=== PATIENT | female | born 1970 | race Caucasian/White ===

== ENCOUNTER → 2018-09-12 | Outpatient (CLI) | payer OTHER, SELFPAY ==
[2018-09-12 14:35] VITALS: BMI 32.9
[2018-09-19 11:19] LABS: HPV APTIMA, High Risk Negative (Negative)
== END | disposition home or self-care (01) ==
LOC: LABSPEC 17:21
PROVIDERS: Family Provider Internal Medicine; PCP Internal Medicine; Referring Provider Obstetrics & Gynecology; Visit Provider Obstetrics & Gynecology
DX: Z12.4 Encounter for screening for malignant neoplasm of cervix (principal)
CPT/HCPCS: 87624; 88175; G0145

== ENCOUNTER → 2018-09-25 12:13 | Outpatient (CLI) | payer OTHER, SELFPAY ==
[2018-09-12 14:35] VITALS: BMI 32.9
--- NOTE | 2018-09-25 12:14 | US_ITS ---
STUDY: ULTRASOUND OF THE FEMALE PELVIS - COMPLETE REASON FOR EXAM: Female, 47 years old. Heavy bleeding LMP: 09/20/2018 TECHNIQUE: Transabdominal and Transvaginal TECHNICAL QUALITY: Adequate. COMPARISON: None. FINDINGS: The uterus is anteverted and is in a midline position. The uterus measures 12.1 x 5.1 x 4.3 cm. Multiple nabothian cysts noted on the cervix. The endometrium measures 7 mm in thickness, and is heterogeneous (striated). There is no demonstrated endometrial mass. 2 uterine fibroids noted, larger measures 2.3 cm, smaller 0.8 cm. scar also noted. I.U.D. - The patient does not have an I.U.D. The right ovary is visualized. The right ovary measures 2.1 x 2.5 x 1.7 cm. There is a 1.0 cm dominant follicle.. There is normal arterial and normal venous vascularity. The left ovary is visualized. The left ovary measures 3.4 x 2.5 x 1.5 cm. There is a 1.2 cm dominant follicle. There is normal arterial and normal venous vascularity. There is no fluid in the cul-de-sac. The bladder is incompletely distended US/Pelvic (Non ) IMPRESSION: Enlarged fibroid uterus Dominant follicular cysts on both ovaries, no suspicious adnexal mass or free fluid Nabothian cysts on the cervix Electronically Signed: Basilio Escobar MD at 13:52 EDT , Service support ,
--- NOTE | 2018-09-25 12:14 | US_ITS ---
STUDY: ULTRASOUND OF THE FEMALE PELVIS - COMPLETE REASON FOR EXAM: Female, 47 years old. Heavy bleeding LMP: 09/20/2018 TECHNIQUE: Transabdominal and Transvaginal TECHNICAL QUALITY: Adequate. COMPARISON: None. FINDINGS: The uterus is anteverted and is in a midline position. The uterus measures 12.1 x 5.1 x 4.3 cm. Multiple nabothian cysts noted on the cervix. The endometrium measures 7 mm in thickness, and is heterogeneous (striated). There is no demonstrated endometrial mass. 2 uterine fibroids noted, larger measures 2.3 cm, smaller 0.8 cm. scar also noted. I.U.D. - The patient does not have an I.U.D. The right ovary is visualized. The right ovary measures 2.1 x 2.5 x 1.7 cm. There is a 1.0 cm dominant follicle.. There is normal arterial and normal venous vascularity. The left ovary is visualized. The left ovary measures 3.4 x 2.5 x 1.5 cm. There is a 1.2 cm dominant follicle. There is normal arterial and normal venous vascularity. There is no fluid in the cul-de-sac. The bladder is incompletely distended US/Transvaginal Non- IMPRESSION: Enlarged fibroid uterus Dominant follicular cysts on both ovaries, no suspicious adnexal mass or free fluid Nabothian cysts on the cervix Electronically Signed: Basilio Escobar MD at 13:52 EDT , Service support ,
== END ==
PROVIDERS: Family Provider Internal Medicine; PCP Internal Medicine; Referring Provider Obstetrics & Gynecology; Visit Provider Obstetrics & Gynecology
DX: N92.1 Excessive and frequent menstruation with irregular cycle (principal); N88.8 Other specified noninflammatory disorders of cervix uteri; D25.9 Leiomyoma of uterus, unspecified
CPT/HCPCS: 76830; 76856; 93976

== ENCOUNTER 2018-10-19 12:42 | Inpatient (IN) | payer OTHER, SELFPAY ==
[2018-09-26 11:19] VITALS: BMI 32.9
[2018-10-10 10:32] VITALS: BMI 32.9
--- NOTE | 2018-10-11 00:51 | HP.PCM_ITS ---
- Problem List (1) Abnormal uterine bleeding Status: Acute (2) Atypical squamous cells of undetermined significance (ASC-US) on cervical Pap smear Status: Acute Comment: HPV negative. Repeat pap in 2019 (3) Uterine fibroid Status: Acute Comment: lavbernarda bs cysto History and Physical Date of Admission: 10/18/18 Intake Vital Signs 10/10/18 Body Mass Index (BMI) 32.9 10/10/18 Height 5 ft 3 in 10/10/18 Weight: 189 lb 10/10/18 Body Mass Index (BMI) 33.5 10/10/18 Blood Pressure 120/78 Intake Visit Reasons: ANTONI DECKER Chief Complaint: Prep OP LAV BS Cysto ERAS Tennis Professional Required: No Is patient in pain?: No Allergies No Known Allergies Allergy (Verified 10/10/18 10:32) Medications NK 10/10/18 [History Confirmed 10/10/18] Is last menstrual period known: No Post menopausal: No Patient : No : No [facility] Medical History No known problems (Acute) Surgical History No history of previous surgery (Acute) Family History Grandmother Breast cancer Heart disease Grandmother Breast cancer Social History (Updated 10/10/18 @ 10:50 by Ofelia Ragland MD) household members: family housing: house number of children: 2 current occupational status: employed current occupation: Retail current occupational exposures/hazards: No Smoking Status: Never smoker second hand exposure: No alcohol intake: current alcohol intake frequency: holidays/special occasions only substance use type: does not use seatbelt use: always do you feel safe at home: Yes HPI ANTONI PACK BS: Details: SONYA JENNINGS is a 47 year old who presents for abnormal uterine bleeding, pelvic discomfort and irregular bleeding every 2 weeks, heavy and then bleeding in between. on ultrasound she has a 12 cm fibroid. she has had 1 previous cs and 1 . Female Reproductive History Questions: Sexually active: Yes, Dyspareunia: No, PCB: No Menopausal Symptoms: No night sweats Pregancy History 3 Elective abortions Hx Para 2 Spontaneous abortions 1 Hx # Term Pregnancies Ectopic pregnancies Hx # Pregnancies Multiple births # of living children 2 Past Pregnancies Del. Date Name GA/Weeks Outcome Route Bth Weight Infant Gen Labor Lgth Anesthesia Del [facility] FOB 12/19/96 Timothy live - full term Female 10/12/00 Jackeline live - full term Female ROS Const Constitutional: Denies fatigue, night sweats, weight gain or weight loss ENT ENT: Reports system reviewed and no additional complaints, except as docu Cardio Card: Denies chest pain Resp Resp: Denies cough or dyspnea GI GI: Reports as per HPI; denies abdominal pain, constipation, nausea or vomiting : Denies nipple discharge Musc Musc: Denies joint pain, back pain or muscle weakness Skin Skin/Breast: Denies hair loss, change in hair, dry skin, breast lump, breast pain, breast skin changes or nipple discharge Neuro Neuro: Reports system reviewed and no additional complaints, except as docu Psych Psych: Reports system reviewed and no additional complaints, except as docu Endo Endo: Denies cold intolerance, excessive sweating, heat intolerance or increased thirst Lg/Lymph Hematologic/Lymphatic: Denies easy bleeding, Denies easy bruising, Denies enlarged lymph nodes Exam Const General: cooperative, healthy appearing, comfortable, no acute distress, well developed Orientation: alert [facility] Head: normal to inspection, normocephalic Ears: hearing grossly normal bilaterally, external ears normal Nose: external nose normal, nares normal Face and sinus: normal facial exam Neck Neck: normal visual inspection, no lymphadenopathy Thyroid: thyroid normal Chest Chest palpation & inspection: normal inspection of the chest Resp Effort & Inspection: normal respiratory effort Auscultation: clear to auscultation bilaterally Cardio Rate: regular rate Rhythm: regular rhythm Heart Sounds: S1 normal, S2 normal GI Inspection: normal to inspection, non-distended Palpation: soft, no hepatosplenomegaly General: bladder normal to palpation External Female Exam: normal external appearance, normal appearance of the urethra Urethra: normal appearance of the urethra, normal palpation, no discharge Speculum Exam - Vagina: normal appearance of the vagina, normal vaginal discharge Speculum Exam - Cervix: normal appearance of the cervix, nontender Bimanual Exam- Vagina & Uterus: normal bimanual exam, uterine size normal, bladder normal to palpation, uterine shape normal, No cervical tenderness, uterine mobility normal, uterine consistency normal, normal cervical palpation, uterus non-tender Bimanual Exam- Adnexa, other: normal adnexae, adnexae mobile, no adnexal masses, pelvic support normal Pelvic Support: normal Musc Other: gross motor intact no deficits, full bilateral strength Skin General: no rashes or lesions noted Neuro General: alert, awake, moves all extremities, no focal motor deficits Motor: muscle tone normal throughout Extrem General: normal to inspection, no pedal edema Psych Appearance: grossly normal Mental Status: mental status grossly normal Affect: normal affect Speech and Movement: speech and movement normal Assessment & Plan Problems 1. Abnormal uterine bleeding N93.9 2. Uterine fibroid D25.9 [facility] bs cysto Plan discussed surgical risks including risks of anesthesia, infection, bleeding, injury to bowel, bladder or blood vessels, and patient wishes to proceed with surgery. Coding Level of Care Code No Charge Diagnoses Abnormal uterine bleeding N93.9 Uterine fibroid D25.9
[2018-10-15 12:15] LABS: Hematocrit 42.8 % (37-47); Hemoglobin 13.7 g/dL (12.0-15.0); Mean Corpuscular Volume 93.9 fL (81-99); Mean Platelet Vol. 10.9 fl (6.2-12.0); Platelet Count 250 K/mm3 (150-450); RBC Distribution Width CV 12.6 % (11.6-14.6); RBC Distribution Width SD 43.3 fl (35.1-43.9); Red Blood Count 4.56 M/mm3 (4.2-5.4); White Blood Count 7.8 K/mm3 (4.4-11.0)
[2018-10-18] VITALS (13 sets, daily range): BP systolic 84–134; BP diastolic 60–84; PULSE 60–101; RESP 14–18; TEMP 36.6–37; O2SAT 97–100; BMI 33.6; BMI 34.7
[2018-10-18 05:57] LABS: Internal QC Validated? YES +Cl - CLEAR BKGD; Pregnancy, Urine Negative Negative
[2018-10-18] MEDS: Acetaminophen 500 MG Tablet 1000 MG PO ×4 (06:09→23:55)
[2018-10-18] MEDS: Gabapentin 600 MG Tablet PO (06:10)
[2018-10-18] MEDS: Enoxaparin 40 MG/0.4 ML Syringe SC (06:10)
[2018-10-18] MEDS: Celecoxib 200 MG Capsule 400 MG PO (06:10)
[2018-10-18] MEDS: Phenazopyridine 95 MG Tablet 190 MG PO (06:10)
[2018-10-18] MEDS: Scopolamine 1mg/72hr Patch 1 PATCH TRANSDERM. (06:11)
[2018-10-18] MEDS: dexAMETHasone 10 MG/ML Vial 8 MG IV (06:14)
[2018-10-18] MEDS: Lactated Ringers 1,000 ML 40 ML IV (06:38)
[2018-10-18] MEDS: Magnesium Sulfate 4gm/100mL 4 GM/100 ML IV.SOLN. IV (06:39)
[2018-10-18 06:56] LABS: Bedside Glucose 65 mg/dL (70-110)
[2018-10-18] MEDS: Vasopressin 20 UNITS/ML Vial (06:58)
--- NOTE | 2018-10-18 07:30 | HYST_PTH ---
PATIENT: SONYA JENNINGS LOC: [facility]3 U#:[id number] AGE/SX: 47/F ROOM: MS319 RE10/19/[address]: Dr. Ofelia Ragland MD : 1970 BED: 1 DIS: 10/21/2018 SPEC #: [id number] RECD: 10/18/18 10:45 STATUS: ARVIND WOODS #: [id number] BAO: 10/18/18 07:[address]: Ofeila Ragland DEPT: SURGICAL PATHOLOGY RECD BY: Tyler Abebe ENTERED: 10/18/18 11:12 SP TYPE: HYSTERECT OTHR DR: Dr. Deanna Sherman DO Tissues: Uterus, NOS Procedures: Surgery Specimen Level V HEADER OPERATION: Laparoscopic assisted vaginal hysterectomy, bilateral salpingectomy PRE-OP DIAGNOSIS: Abnormal uterine bleeding; atypical squamous cells (ASCUS); uterine fibroid TISSUE SUBMITTED: Uterus, cervix, bilateral fallopian tubes MICROSCOPIC DIAGNOSIS Uterus, cervix, bilateral fallopian tubes, vaginal hysterectomy and bilateral salpingectomy: Cervix - chronic cystic cervicitis. - Negative for dysplasia. See comment. Endometrium - proliferative endometrium. Myometrium - focal adenomyosis. Bilateral fallopian tubes - no pathologic diagnosis. Left paratubal cysts. SJ:rg 10/19/18 COMMENT The entire cervix is examined. MICROSCOPIC DESCRIPTION Slides are reviewed. GROSS DESCRIPTION Received in fixative is one container labeled with the patient's name and designated uterus, cervix, bilateral fallopian tubes. The specimen consists of a hysterectomy specimen consisting of uterus with cervix and attached bilateral fallopian tubes. The uterus with cervix weighs 133 gm and measures 11 x 6.5 x 4.5 cm. The serosal surface is pham, glistening. The ectocervical mucosa is unremarkable. The external os is circular in contour and covered with blood clot. The endocervical canal measures 3.5 cm in length and the endocervical mucosa is pham, glistening and unremarkable. Sections of the cervix reveal a few cysts filled with mucoid material. The triangular endometrial cavity measures 5 cm in length and up to 3 cm in width. The endometrium is pham, glistening without any mass lesions and measures 0.1 cm in thickness. Sections of the uterine wall do not reveal any mass lesion and measures up to 2.5 cm in thickness. The right fallopian tube measures 6 cm in length and up to 2.5 cm in diameter. The fimbrial end is identified. Sections reveal unremarkable cut surfaces. The left fallopian tube is similar appearance to right and measures 7 cm in length and 0.7 cm in diameter. Two paratubal cysts are noted measuring 0.5 and 0.7 cm in diameter. The fimbrial end is identified. Sections reveal unremarkable cut surfaces. English Language Learner Tutor sections are submitted in 14 cassettes as follows: 1-8 - cervix like a cone (1?&?2 - 12 to 3 o'clock, 3 & 4 - 3 to 6 o'clock, 5 & 6 - 6 to 9 o'clock, 7 & 8 - 9 to 12 o'clock), 9 & 10 - anterior uterine wall, 11 & 12 - posterior uterine wall, 13 - right fallopian tube, 14 - left fallopian tube and paratubal cysts. / NASIM:abdelrahman 10/18/18 TC:5 CPT: 13443
[2018-10-18] MEDS: Cefazolin 2 GM in 0.9% Normal Saline 100 ML IV (07:35)
--- NOTE | 2018-10-18 07:39 | OP.PCM_ITS ---
Problem List (1) Abnormal uterine bleeding Status: Acute (2) Atypical squamous cells of undetermined significance (ASC-US) on cervical Pap smear Status: Acute Comment: HPV negative. Repeat pap in 2019 (3) Uterine fibroid Status: Acute Comment: lavh bs cysto Report of Operation Date of Procedure: 10/18/18 Pre-Operative Diagnosis: aub Post-Operative Diagnosis: Same plus severe vesicouterine adhesions Surgery/Procedure Performed:: lavh bs cysto Description of Surgical Findings:: Severe vesicouterine adhesions and normal bilateral ovaries some omental to anterior abdominal wall adhesions wildlife and game protector: Darryl Espinoza Type of Anesthesia:: General Special Medications: Surgical snow Specimen's removed: uterus tubes Drains: white Estimated Blood Loss (mL): 150 Fluids Replaced: crystalloid Description of Procedure: Patient received preoperative antibiotics and SCDs were on preoperatively. Patient was taken back to the operating room and placed in the dorsal lithotomy position. General anesthesia was induced and patient was prepped and draped in normal sterile fashion. Uterine manipulator was placed inside the uterus and White catheter placed in the bladder. The umbilicus was grasped with towel clamps and an intraumbilical incision was made after injecting with quarter percent Marcaine and a Veress needle entered into the abdomen confirmed to be intra-abdominal with a low opening pressure. Abdomen was insufflated with CO2 gas and the Veress needle removed and the 5 mm trocar was placed under direct visualization without complication. Right and left lower quadrants were transilluminated and injected with quarter percent Marcaine and 5 mm ports placed under direct visualization. Pelvis was well visualized see operative findings for additional information. Bilateral fallopian tubes were identified and transected with the LigaSure device across the mesosalpinx to the level of the utero-ovarian ligament which was also transected with the LigaSure device. Severe vesicouterine adhesions were taken down with hydrodissection and blunt dissection and then with the LigaSure. Overall 40 minutes were spent on adhesio lysis. The broad ligament was opened up by transecting the round ligament bilaterally and skeletonizing the uterine vessels bilaterally and creating a bladder flap using the LigaSure device. The uterine arteries were transected bilaterally with good visualization of the bladder and the ureters were seen to be inferior lateral to the operative area. Attention was then paid to the vaginal portion of the procedure and the cervix was grasped with Shamir clamps and circumferentially injected with dilute vasopressin. A circumferential incision was made and the vaginal mucosa was mobilized off posteriorly and the cul-de-sac entered into sharply and a longneck speculum placed. The anterior cul-de-sac was then identified and entered into sharply. The uterosacral ligaments were clamped cut and suture ligated with 0 Monocryl bilaterally followed by the cardinal ligaments which were clamped cut and suture ligated bilaterally with 0 Monocryl. The uterus serially descended and was removed without difficulty . Pelvic sidewall pedicles were checked and noted to have excellent hemostasis. The vaginal mucosa was reapproximated incorporating the posterior peritoneum. This was reapproximated using 0 Vicryl [id number] sutures. Excellent hemostasis was noted. The cystoscopy was then performed and bilateral ureteral strong spray was noted and the bladder was noted to have no abnormality or lesions seen. White catheter was replaced and then attention paid to the abdominal portion of the procedure again. The pelvis and cul-de-sac was well visualized and no significant active bleeding noted but some raw areas were seen on the peritoneum and therefore surgical snow was applied. Pressure was taken down and the areas visualized and noted of excellent hemostasis. All ports were removed under direct visualization without complication and the abdomen was desufflated of air. The instruments removed from the abdomen and the vagina vaginal sweep was negative. Port sites on the abdomen were closed with 4-0 Monocryl interrupted sutures and Steri's and windows were applied. She was awoken and taken recovery in stable condition. Grafts/Implants Used: none - Complications none - Admit VTE Documentation VTE Present on Admission: No VTE Mechan Device Prophylaxis: SCD's VTE Pharm Prophylaxis ordered?: Yes Multi Select Codes - Urinary/Genital Urinary/Genital CPT Codes: 19658 Cystoscopy, 48872 LAVH+BSO <250gr Uterus
[2018-10-18] MEDS: Lubricating Jelly 60 GM Tube 30 GM TOPICAL (08:05)
[2018-10-18] MEDS: Bupivacaine 0.25% 30 ML Vial (09:00)
[2018-10-18] MEDS: Ondansetron 4 MG/2 ML Vial IV (09:43)
[2018-10-18] MEDS: Lactated Ringers 1,000 ML 70 ML IV ×2 (10:34→12:42)
[2018-10-18] MEDS: Ketorolac 30 MG/ML Syringe IV ×3 (11:24→23:51)
[2018-10-18] MEDS: Docusate Sodium 100 MG Capsule PO ×2 (12:42→22:06)
[2018-10-18] MEDS: oxyCODONE 5 MG Tablet PO (14:38)
[2018-10-18] MEDS: Ondansetron ODT 4 MG Tablet PO (16:25)
[2018-10-18] MEDS: 0.9% NaCl Peripheral Flush Adult/Peds IV ×4 (17:34→23:51)
[2018-10-18] MEDS: proMETHazine 25 MG/ML Syringe 12.5 MG IV (19:54)
[2018-10-18] MEDS: Lactated Ringers 1,000 ML 999 ML IV (22:25)
[2018-10-18 22:40] LABS: Hemoglobin 10.2 g/dL (12.0-15.0)
[2018-10-18] MEDS: Metoclopramide 10 MG/2 ML Vial IV (23:45)
[2018-10-19] VITALS (23 sets, daily range): BP systolic 91–127; BP diastolic 50–94; PULSE 85–131; RESP 16–20; TEMP 36.5–37.3; O2SAT 91–100
[2018-10-19] MEDS: Lactated Ringers 1,000 ML 125 ML IV (01:22)
[2018-10-19 03:05] LABS: Hematocrit 27.5 % (37-47)
--- NOTE | 2018-10-19 03:53 | PCM.PN.OB ---
Patient Problems: Active and Suspected Problems (Last Updated 10/19/18 @ 03:44 by Ofelia Ragland MD) Postoperative hemorrhage (Acute) Acute blood loss as cause of postoperative anemia (Acute) Subjective: patient evaluated due to decreasing blood counts. patient has nausea and dizziness with standing, feels bloated. has had some emesis but no CP or SOB - Physical Exam General: Alert, Oriented x3 Lungs: Clear to auscultation, Normal air movement Cardiovascular: Regular rate, Regular Rhythm Abdomen: Soft, Distended, Tender Extremities: No edema Vital Signs Temp Pulse Resp BP Pulse Ox 98.8 F 95 18 97/58 L 94 10/19/18 03:00 10/19/18 03:00 10/19/18 03:00 10/19/18 03:00 10/19/18 03:00 Oxygen Flow Rate (L/min) 6 Oxygen Delivery Method Room Air Weight: 196 lb 6.91 oz Body Mass Index (BMI) 34.7 Intake and Output for Last 24 Hours 10/17/18 10/18/18 10/19/18 23:59 23:59 23:59 Intake Total 4731.69 / 4731.69 218.75 / 218.75 Output Total 715 / 715 200 / 200 Balance 4016.69 / 4016.69 18.75 / 18.75 Laboratory Tests Past 24 Hrs 10/18/18 10/18/18 10/19/18 05:44 22:30 02:48 Hgb 10.2 L 9.0 L Hct 27.5 L Urine Test Negative POC Glucose 10/18/18 06:01 POC Glucose 65 L Medical Necessity - Tobacco Use Smoking Status: Never smoker Tobacco Use: Non-smoker Assessment/Plan All Active Problems (Last Updated 10/19/18 @ 03:44 by Ofelia Ragland MD) Postoperative hemorrhage (Acute) Acute blood loss as cause of postoperative anemia (Acute) Abnormal uterine bleeding (Acute) Uterine fibroid (Acute) Atypical squamous cells of undetermined significance (ASC-US) on cervical Pap smear (Acute) 47 yo s/p LAVH with extensive ZAKIA with acute blood loss anemia secondary to postoperative bleeding POD 1 patient evaluated recommend diagnostic laparoscopy possible laparotomy, possible cystoscopy for evaluation and evacuation of blood. I have discussed with the patient the risks, benefits, and alternatives of the procedure which include but are not limited to risks of anesthesia, bleeding, infection, possible damage to bowel, bladder, or surrounding vasculature which could lead to additional surgery to evaluate any complications.
[2018-10-19] MEDS: Lactated Ringers 1,000 ML 100 ML IV ×3 (05:00→23:34)
[2018-10-19] MEDS: Lactated Ringers 1,000 ML 40 ML IV ×2 (05:10→06:10)
[2018-10-19] MEDS: Bupivacaine Mpf 0.5% 30 ML VIAL (06:00)
--- NOTE | 2018-10-19 06:17 | OP.PCM_ITS ---
Problem List (1) Abnormal uterine bleeding Status: Acute (2) Atypical squamous cells of undetermined significance (ASC-US) on cervical Pap smear Status: Acute Comment: HPV negative. Repeat pap in 2019 (3) Uterine fibroid Status: Acute Comment: [facility] bs cysto Report of Operation Date of Procedure: 10/19/18 Pre-Operative Diagnosis: postoperative bleeding Post-Operative Diagnosis: same Surgery/Procedure Performed:: diagnostic laparoscopy cystoscopy Description of Surgical Findings:: 500 cc clot in pelvis, superficial venous oozing volunteer services manager: Laurent Pierson Type of Anesthesia:: General Special Medications: tone floseal Specimen's removed: none Drains: none Estimated Blood Loss (mL): 600 Fluids Replaced: crystalloid Description of Procedure: Postoperatively patient developed bloating and dropping hemoglobin and the decision was made to take her back for diagnostic laparoscopy. Patient was prepped and draped in normal sterile fashion in dorsal supine position the bladder drained and a sponge stick in the vagina. Pelvis was copiously irr igated and suctioned of about 500 cc of organized clot. There were normal obvious vessels bleeding however there more multiple areas of raw appearance that are oozing particularly on the left sidewall which were cauterized with the LigaSure device. Areas over the cuff were cauterized. Scant vaginal bleeding was noted with no active areas vaginally. Tone was placed over the area and there is still a raw appearance to certain areas with no obvious cauterize able vessels and therefore FloSeal was then placed on the area. Pressure was taken down and the areas were monitored for several minutes to ensure hemostasis. Good hemostasis was noted and abdomen was drained of gas and cystoscopy was performed to confirm integrity of the bladder and bilateral ureters which was seen without difficulty. Good ureteral spray was noted bilaterally. Mild ecchymoses from the blunt trauma of vaginal surgery was noted to ports of the bladder but no compromise or lacerations were noted. All instruments removed from the vagina Gallardo catheter was replaced all port sites were removed from the abdomen and port sites were closed with 3-0 Monocryl. Patient was awakened and taken recovery in stable condition. Grafts/Implants Used: none - Complications none - Admit VTE Documentation VTE Present on Admission: No VTE Mechan Device Prophylaxis: SCD's Multi Select Codes - Urinary/Genital Urinary/Genital CPT Codes: 54810 Cystoscopy, Other Procedure See Report - 70054 diagnostic laparoscopy
[2018-10-19] MEDS: Ipratropium/Albuterol Sulfate 3 ML AMPUL.NEB INHALATION (06:43)
[2018-10-19] MEDS: Ketorolac 30 MG/ML Syringe IV (07:03)
[2018-10-19] MEDS: Metoclopramide 10 MG/2 ML Vial IV ×3 (07:06→23:24)
[2018-10-19 07:07] LABS: Absolute Lymphocyte Count 1.16 X10^3/uL (0.83-4.51); Absolute Neutrophil Count 5.8 X10^3/uL (2.0-7.7); Eosinophils% 1.3 % (0-5); Hematocrit 20.2 % (37-47); Hemoglobin 6.2 g/dL (12.0-15.0); Lymphocyte # 1.16 X10^3/ul (4.0); Lymphocyte % 14.8 % (19-41); Mean Corp Hgb Conc 30.7 g/dL (32-36); Mean Corpuscular Hgb 29.5 pg (27.0-32.0); Mean Corpuscular Volume 96.2 fL (81-99); Mean Platelet Vol. 10.7 fl (6.2-12.0); Monocyte# 0.76 X10^3/uL; Monocyte% 9.7 % (0-10); NRBC Flagged by Analyzer 0 % (0-5); Neutrophil # 5.83 X10^3/uL (2.7-7.7); Neutrophil % 74.1 % (47-70); POSITIVE MORPHOLOGY YES; Platelet Count 182 K/mm3 (150-450); RBC Distribution Width CV 13.1 % (11.6-14.6); RBC Distribution Width SD 45.2 fl (35.1-43.9); White Blood Count 7.9 K/mm3 (4.4-11.0)
[2018-10-19 07:08] LABS: Differential Indicated SCAN CRITERIA MET
[2018-10-19 07:17] LABS: International Normalized Ratio 1.3; Prothrombin Time (Protime)PT. 16.3 SECONDS (11.7-14.9)
[2018-10-19 07:18] LABS: Fibrinogen 214 mg/dl (203-444); Partial Thromboplast Time 35.2 Seconds (24.1-36.2)
--- NOTE | 2018-10-19 12:42 | PN.OBGYN_ITS ---
Patient Problems: Active and Suspected Problems (Last Updated 10/19/18 @ 03:44 by Ofelia Ragland MD) Acute blood loss as cause of postoperative anemia (Acute) Postoperative hemorrhage (Acute) - Physical Exam General: Alert, Oriented x3 Lungs: Clear to auscultation Cardiovascular: Tachycardic Abdomen: Soft, Non Tender, Distended Vital Signs Temp Pulse Resp BP Pulse Ox 98.4 F 104 H 18 98/60 96 10/19/18 11:54 10/19/18 11:54 10/19/18 11:54 10/19/18 11:54 10/19/18 11:54 Oxygen Flow Rate (L/min) 8 Oxygen Delivery Method Room Air Weight: 196 lb 6.91 oz Body Mass Index (BMI) 34.7 Intake and Output for Last 24 Hours 10/17/18 10/18/18 10/19/18 23:59 23:59 23:59 Intake Total 4731.69 / 4731.69 6545.75 / 6545.75 Output Total 715 / 715 2150 / 2150 Balance 4016.69 / 4016.69 4395.75 / 4395.75 Laboratory Tests Past 24 Hrs 10/18/18 10/18/18 10/19/18 22:30 22:30 02:48 WBC RBC Hgb 10.2 L 9.0 L Hct 27.5 L MCV MCH MCHC RDW Std Deviation RDW Coeff of Kia Plt Count MPV Immature Gran % (Auto) Neut % (Auto) Lymph % (Auto) [place] % (Auto) Eos % (Auto) Baso % (Auto) Absolute Neuts (auto) Absolute Lymphs (auto) Nucleated RBC % PT INR APTT Fibrinogen Blood Type O POSITIVE Antibody Screen NEGATIVE Crossmatch See Detail 10/19/18 10/19/18 06:58 06:58 WBC 7.9 RBC 2.10 L Hgb 6.2 L Hct 20.2 L MCV 96.2 MCH 29.5 MCHC 30.7 L RDW Std Deviation 45.2 H RDW Coeff of Kia 13.1 Plt Count 182 MPV 10.7 Immature Gran % (Auto) 0.100 Neut % (Auto) 74.1 H Lymph % (Auto) 14.8 L [place] % (Auto) 9.7 Eos % (Auto) 1.3 Baso % (Auto) 0.0 Absolute Neuts (auto) 5.8 Absolute Lymphs (auto) 1.16 Nucleated RBC % 0 PT 16.3 H INR 1.3 APTT 35.2 Fibrinogen 214 Blood Type Antibody Screen Crossmatch Medical Necessity - Tobacco Use Smoking Status: Never smoker Tobacco Use: Non-smoker Assessment/Plan All Active Problems (Last Updated 10/19/18 @ 03:44 by Ofelia Ragland MD) Acute blood loss as cause of postoperative anemia (Acute) Postoperative hemorrhage (Acute) Abnormal uterine bleeding (Acute) Uterine fibroid (Acute) Atypical squamous cells of undetermined significance (ASC-US) on cervical Pap smear (Acute) 47 yo s/p LAVH with extensive ZAKIA with acute blood loss anemia secondary to postoperative bleeding POD 1 s/p diagnostic laparoscopy pod 0 evacuation of clot blood loss anemia - getting 2 U PRBCs now. continue to monitor and fu blood counts tonight and tomorrow am
[2018-10-19 16:10] LABS: Absolute Lymphocyte Count 2.29 X10^3/uL (0.83-4.51); Absolute Neutrophil Count 3.4 X10^3/uL (2.0-7.7); Basophil# 0.01 X10^3/uL; Basophil% 0.2 % (0-1); Eosinophil# 0.01 X10^3/uL; Eosinophils% 0.2 % (0-5); Hematocrit 27.1 % (37-47); Hemoglobin 8.9 g/dL (12.0-15.0); Lymphocyte # 2.29 X10^3/ul (4.0); Lymphocyte % 35.7 % (19-41); Mean Corp Hgb Conc 32.8 g/dL (32-36); Mean Corpuscular Volume 91.2 fL (81-99); Mean Platelet Vol. 10.5 fl (6.2-12.0); Monocyte# 0.72 X10^3/uL; Monocyte% 11.2 % (0-10); NRBC Flagged by Analyzer 0 % (0-5); Neutrophil # 3.36 X10^3/uL (2.7-7.7); Neutrophil % 52.4 % (47-70); Platelet Count 192 K/mm3 (150-450); RBC Distribution Width CV 13.5 % (11.6-14.6); RBC Distribution Width SD 45.6 fl (35.1-43.9); Red Blood Count 2.97 M/mm3 (4.2-5.4); White Blood Count 6.4 K/mm3 (4.4-11.0)
--- NOTE | 2018-10-19 16:13 | CT_ITS ---
STUDY: CTA CHEST REASON FOR EXAM: Female, 47 years old. Shortness of breath. Postop repair of a lower abdominal bleed. Total vaginal hysterectomy with salpingectomy 2 days ago. RADIATION DOSAGE (If Supplied By Facility): CTDIvol = ( 18.49 ) mGy, DLP = ( 1880.97 ) mGycm TECHNIQUE: The examination was performed with the intravenous administration of 100ML IV Isovue 370. Post-processing of the angiographic images was performed, with multiplanar reformation and 3D reconstruction. Individualized dose optimization techniques were used for this CT. COMPARISON: CT of the abdomen and pelvis, October 19, 2018. Chest, March 01, 2017. FINDINGS: Normal enhancement of the main pulmonary artery and right and left pulmonary arteries. Normal enhancement of the bilateral peripheral pulmonary arteries. There is no demonstrated pulmonary embolism. Normal thoracic aorta and visualized great vessels. There is no demonstrated aortic dissection. Normal heart and pericardium. Normal mediastinum. Normal hilar regions. Normal visualized trachea and bronchi. The lungs are under expanded. There are small bilateral pleural effusions with atelectatic changes at both lung bases. No visualized mass or infiltrate. Normal chest wall structures. Normal osseous structures. No evidence of ascites. The visualized abdomen is otherwise grossly normal. CT/CTA Chest W/WO Contrast IMPRESSION: 1. No evidence of pulmonary embolus. 2. No aortic dissection or aneurysm. 3. Decreased inspiratory effort with bibasilar atelectasis and small pleural effusions. 4. Ascites. Electronically Signed: Eugene Dukes DO at 17:12 EDT Tel [phone], Service support ,
--- NOTE | 2018-10-19 16:31 | NURSING ---
melissa Sosa RN started 20gauge IV in right wrist- pt reports being a hard stick. Pt taken down for stat CT at this time.
--- NOTE | 2018-10-19 16:43 | CT_ITS ---
STUDY: CT ABDOMEN AND PELVIS WITH CONTRAST REASON FOR EXAM: Female, 47 years old. Shortness of breath. Postop-total vaginal hysterectomy with bilateral salpingo-oophorectomy 2 days ago. Surgery today for lower abdominal bleed. Patient received 2 units of blood. RADIATION DOSAGE (If Supplied By Facility): CTDIvol = ( 18.49 ) mGy, DLP = ( 1880.97 ) mGycm TECHNIQUE: Transaxial images were obtained from the dome of the diaphragm to the symphysis pubis without oral contrast. 100ML IV Isovue 370 was administered. Sagittal and coronal images were reconstructed. Individualized dose optimization techniques were used for this CT. COMPARISON: Transvaginal ultrasound, September 25, 2018. CT of the chest, October 19, 2018. FINDINGS: Small bilateral pleural effusions with bibasilar atelectasis. The visualized portions of the heart are within normal limits. Normal liver. Gallbladder is distended but without gross abnormality. There is no biliary ductal dilatation. Normal spleen. Normal pancreas. Normal bilateral adrenal glands. Normal right kidney. Normal left kidney. Normal visualized ureters. Normal visualized stomach. There are mildly distended small bowel loops with air-fluid levels. Air and feces is seen throughout colon without mass or obstruction The appendix is visualized and appears normal. Normal abdominal aorta. Normal inferior vena cava. Normal retroperitoneum. The urinary bladder is collapsed about a Gallardo catheter. Vaginal cuff is mildly prominent but otherwise unremarkable. There is air in the extraperitoneal soft tissues anterior to the bladder just above the symphysis pubis. There is diffuse ascites without evidence of free air within the abdominal cavity. There is no evidence of extravasation of contrast to suggest active hemorrhage. There is an umbilical hernia of omental fat. There is anterior between the left oblique muscles with mild stranding of the overlying subcutaneous fat thought to be secondary to laparoscopic surgery. There is a small focus of air and fluid in the subcutaneous fat in the midline supraumbilical abdominal wall. Normal osseous structures. CT/Abdomen/Pelvis WITH Contrast IMPRESSION: 1. Diffuse ascites. There is no evidence of extravasation of contrast to suggest active bleed. 2. No evidence of free intraperitoneal air. 3. Findings suggestive of postop ileus. 4. Air in fluid in the soft tissues of the abdominal wall suggesting prior laparoscopic surgery. 5. Minimal air in the extraperitoneal fat of the anterior lower pelvis. 6. Gallardo catheter within the urinary bladder. 7. Small bilateral pleural effusions and atelectasis. Electronically Signed: Eugene Dukes DO at 17:09 EDT Tel [phone], Service support ,
[2018-10-19] MEDS: 0.9% NaCl Peripheral Flush Adult/Peds IV ×2 (17:15→17:19)
[2018-10-19] MEDS: Acetaminophen 500 MG Tablet 1000 MG PO (20:02)
[2018-10-19] MEDS: Docusate Sodium 100 MG Capsule PO (23:23)
[2018-10-20] VITALS (19 sets, daily range): BP systolic 101–125; BP diastolic 66–80; PULSE 88–140; RESP 14–20; TEMP 36.6–37; O2SAT 94–97
[2018-10-20] MEDS: Metoclopramide 10 MG/2 ML Vial IV ×3 (05:27→17:41)
[2018-10-20] MEDS: Acetaminophen 500 MG Tablet 1000 MG PO ×3 (05:27→17:42)
[2018-10-20 08:08] LABS: Absolute Lymphocyte Count 1.63 X10^3/uL (0.83-4.51); Absolute Neutrophil Count 6.3 X10^3/uL (2.0-7.7); Basophil# 0.03 X10^3/uL; Basophil% 0.3 % (0-1); Eosinophils% 1.1 % (0-5); Hematocrit 24.9 % (37-47); Hemoglobin 8.1 g/dL (12.0-15.0); Lymphocyte # 1.63 X10^3/ul (4.0); Mean Corp Hgb Conc 32.5 g/dL (32-36); Mean Corpuscular Hgb 30.5 pg (27.0-32.0); Mean Corpuscular Volume 93.6 fL (81-99); Monocyte# 0.95 X10^3/uL; Monocyte% 10.5 % (0-10); NRBC Flagged by Analyzer 0 % (0-5); Neutrophil # 6.32 X10^3/uL (2.7-7.7); Neutrophil % 69.7 % (47-70); Platelet Count 183 K/mm3 (150-450); RBC Distribution Width CV 14.2 % (11.6-14.6); Red Blood Count 2.66 M/mm3 (4.2-5.4); White Blood Count 9.1 K/mm3 (4.4-11.0)
--- NOTE | 2018-10-20 08:40 | PCM.PN.OB ---
Patient Problems: Active and Suspected Problems (Last Updated 10/19/18 @ 03:44 by Ofelia Ragland MD) Postoperative ileus (Acute) Atelectasis (Acute) Acute blood loss as cause of postoperative anemia (Acute) Postoperative hemorrhage (Acute) Subjective: passing gas now, needs to ambulate and still having some shortness of breath in certain positions. pain controlled with minimal meds. imaging yesterday show no new bleeding, postop ileus, no PE or pneumonia but atelectasis - Physical Exam General: Alert, Oriented x3 Lungs: Clear to auscultation, Diminished Cardiovascular: Regular rate Abdomen: Soft, Passing Flatus, Distended - less than yesterday, Tender - less than yesterday Vital Signs Temp Pulse Resp BP Pulse Ox 98.1 F 89 18 125/69 H 97 10/20/18 02:19 10/20/18 07:29 10/20/18 02:19 10/20/18 02:19 10/20/18 02:19 Oxygen Flow Rate (L/min) 2 Oxygen Delivery Method Nasal Cannula Weight: 196 lb 6.91 oz Body Mass Index (BMI) 34.7 Intake and Output for Last 24 Hours 10/18/18 10/19/18 10/20/18 23:59 23:59 23:59 Intake Total 4731.69 / 4731.69 8427.42 / 8427.42 100 / 100 Output Total 715 / 715 3150 / 3150 250 / 250 Balance 4016.69 / 4016.69 5277.42 / 5277.42 -150 / -150 Laboratory Tests Past 24 Hrs 10/18/18 10/19/18 10/20/18 22:30 15:55 07:08 WBC 6.4 9.1 RBC 2.97 L 2.66 L Hgb 8.9 L 8.1 L Hct 27.1 L 24.9 L MCV 91.2 D 93.6 MCH 30.0 30.5 MCHC 32.8 32.5 RDW Std Deviation 45.6 H 48.0 H RDW Coeff of Kia 13.5 14.2 Plt Count 192 183 MPV 10.5 11.0 Immature Gran % (Auto) 0.300 0.400 Neut % (Auto) 52.4 69.7 Lymph % (Auto) 35.7 18.0 L [place] % (Auto) 11.2 H 10.5 H Eos % (Auto) 0.2 1.1 Baso % (Auto) 0.2 0.3 Absolute Neuts (auto) 3.4 6.3 Absolute Lymphs (auto) 2.29 1.63 Nucleated RBC % 0 0 Blood Type O POSITIVE Antibody Screen NEGATIVE Crossmatch See Detail Medical Necessity - Tobacco Use Smoking Status: Never smoker Tobacco Use: Non-smoker Assessment/Plan All Active Problems (Last Updated 10/19/18 @ 03:44 by Ofelia Ragland MD) Postoperative ileus (Acute) Atelectasis (Acute) Acute blood loss as cause of postoperative anemia (Acute) Postoperative hemorrhage (Acute) Abnormal uterine bleeding (Acute) Uterine fibroid (Acute) Atypical squamous cells of undetermined significance (ASC-US) on cervical Pap smear (Acute) 47 yo s/p LAVH with extensive ZAKIA with acute blood loss anemia secondary to postoperative bleeding POD 2 s/p diagnostic laparoscopy pod 1 evacuation of clots blood loss anemia - s/p 2 U PRBCs. stable. postop ileus- positive flatus, advance diet and ambulate, on reglan and mylicon pain control- add back toradol and encouarge oral pain control ambulate, increase diet, dc white and if doing well possible dc home in pm
--- NOTE | 2018-10-20 08:43 | PCM.DC.SUM ---
Discharge Date and Diagnosis Date of Admission: 10/18/18 Date of Discharge: 10/21/18 - Primary Discharge Diagnosis Active and Suspected Problems (Last Updated 10/19/18 @ 03:44 by Ofelia Ragland MD) Postoperative ileus (Acute) Atelectasis (Acute) Acute blood loss as cause of postoperative anemia (Acute) Postoperative hemorrhage (Acute) Hospital Course and Treatment Imaging Results: CT abdomen pelvis shows ileus and CT of the chest shows atelectasis small pleural effusion no PE seen Operations: hysterectomy, - - Diagnostic laparoscopy postop day 1 cystoscopy Summary of Care Provided: The patient is a 47 year old F who presented for hysterectomy for abnormal uterine bleeding patient underwent an [facility] BS cystoscopy that had extensive lysis of adhesions. Patient had been given Lovenox preop as part of the ERAS protocol and the patient appeared to be hemostatic at the time of initial surgery however overnight into the morning patient developed lower blood pressures and was dizzy with ambulation and blood counts were checked and noted to be dropped enough to be suspicious for bleeding and therefore the patient was taken back to the OR for diagnostic laparoscopy. Only surface oozing was noted thought to be related to the perioperative anticoagulation but the areas were cauterized and treated with hemostatic agents and a second cystoscopy was performed to check the bladder and ureteral integrity which was confirmed. Patient was given 2 units of blood initially and had some shortness of breath and abdominal distention with no flatus and imaging confirmed no PE but a postoperative ileus was seen. After bowel rest patient began passing flatus and therefore diet was advanced as tolerated. On postop day 2 she developed tachycardia with any ambulation therefore 1/3 unit of blood was transfused due to the patient being symptomatic. Blood counts were then rechecked and stable and patient felt significant improvement in her condition. She was stable for discharge to home on postop day #3. - Physical Exam Vital Signs Temp Pulse Resp BP Pulse Ox 98.1 F 89 18 125/69 H 97 10/20/18 02:19 10/20/18 07:29 10/20/18 02:19 10/20/18 02:19 10/20/18 02:19 Oxygen Flow Rate (L/min) 2 Oxygen Delivery Method Nasal Cannula Weight: 196 lb 6.91 oz Body Mass Index (BMI) 34.7 Intake and Output for Last 24 Hours 10/18/18 10/19/18 10/20/18 23:59 23:59 23:59 Intake Total 4731.69 / 4731.69 8427.42 / 8427.42 100 / 100 Output Total 715 / 715 3150 / 3150 250 / 250 Balance 4016.69 / 4016.69 5277.42 / 5277.42 -150 / -150 Laboratory Tests Past 24 Hrs 10/18/18 10/19/18 10/20/18 22:30 15:55 07:08 WBC 6.4 9.1 RBC 2.97 L 2.66 L Hgb 8.9 L 8.1 L Hct 27.1 L 24.9 L MCV 91.2 D 93.6 MCH 30.0 30.5 MCHC 32.8 32.5 RDW Std Deviation 45.6 H 48.0 H RDW Coeff of Kia 13.5 14.2 Plt Count 192 183 MPV 10.5 11.0 Immature Gran % (Auto) 0.300 0.400 Neut % (Auto) 52.4 69.7 Lymph % (Auto) 35.7 18.0 L [place] % (Auto) 11.2 H 10.5 H Eos % (Auto) 0.2 1.1 Baso % (Auto) 0.2 0.3 Absolute Neuts (auto) 3.4 6.3 Absolute Lymphs (auto) 2.29 1.63 Nucleated RBC % 0 0 Blood Type O POSITIVE Antibody Screen NEGATIVE Crossmatch See Detail Home Medications: Medications to take at Discharge Naproxen [Naprosyn] 250 - 500 mg PO Q8H PRN PRN #30 tab 10/18/18 Oxycodone HCl/Acetaminophen [Percocet 5-325] 1 - 2 tab PO Q4H PRN PRN 7 Days #15 tab 10/18/18 Ferrous Sulfate [Slow Fe] 142 mg PO BID #60 tablet.er 10/20/18 Following Prescrptions Were Given to Patient: Naproxen [Naprosyn] 250 - 500 mg PO Q8H PRN PRN #30 tab PRN Reason: MILD PAIN Transmission Status: Received by [facility] Oxycodone HCl/Acetaminophen [Percocet 5-325] 1 - 2 tab PO Q4H PRN PRN 7 Days #15 tab PRN Reason: Pain Transmission Status: Received by [facility] Ferrous Sulfate [Slow Fe] 142 mg PO BID #60 tablet.er Transmission Status: Received by [facility] Primary Care Physician: Deanna Sherman DO [Primary Care Provider] - Medical Necessity - Tobacco Use Smoking Status: Never smoker Tobacco Use: Non-smoker Meaningful Use Info Meaningful Use Diagnoses (Choose all that apply): None applicable
--- NOTE | 2018-10-20 08:43 | PCM.DC.VHY ---
Discharge Diet: No Restrictions Discharge Activity: Return to Normal Activity, May Not Drive, May Shower May resume sexual activity in: 6-8 weeks Call your doctor if your incision/area has: Continuous Slow Oozing, Sudden Increased Bleeding, Increased Pain/ Swelling, Increased Redness, Foul Smelling Discharge Call your doctor if you observe: Fever of 101 or Higher, Inability to urinate, Inability to have a bowel movement, Using more than one pad per hour Allergies/Adverse Reactions: Allergies No Known Allergies Allergy (Verified 10/11/18 10:09) Medications to take at Discharge Naproxen [Naprosyn] 250 - 500 mg PO Q8H PRN PRN #30 tab 10/18/18 Oxycodone HCl/Acetaminophen [Percocet 5-325] 1 - 2 tab PO Q4H PRN PRN 7 Days #15 tab 10/18/18 Ferrous Sulfate [Slow Fe] 142 mg PO BID #60 tablet.er 10/20/18 The following prescriptions were given: Naproxen [Naprosyn] 250 - 500 mg PO Q8H PRN PRN #30 tab PRN Reason: MILD PAIN Transmission Status: Received by [facility] Oxycodone HCl/Acetaminophen [Percocet 5-325] 1 - 2 tab PO Q4H PRN PRN 7 Days #15 tab PRN Reason: Pain Transmission Status: Received by [facility] Ferrous Sulfate [Slow Fe] 142 mg PO BID #60 tablet.er Transmission Status: Pending to [facility] Primary Care Physician: Deanna Sherman DO [Primary Care Provider] - Test Results: Test results from this visit will be discussed in further detail at your follow-up appointment, if applicable. Please Follow Up With: Ofelia Ragland MD - [phone]
[2018-10-20] MEDS: Ketorolac 10 MG Tablet PO ×3 (08:55→17:41)
[2018-10-20] MEDS: Ensure Clear 120 ML Liquid PO ×2 (08:55→12:38)
[2018-10-20] MEDS: Docusate Sodium 100 MG Capsule PO ×2 (08:56→22:07)
[2018-10-20] MEDS: Lactated Ringers 1,000 ML 100 ML IV ×2 (08:57→22:06)
[2018-10-20] MEDS: 0.9% NaCl Peripheral Flush Adult/Peds IV ×2 (12:43→17:40)
[2018-10-20] MEDS: 0.9% Normal Saline 1,000 ML 999 ML IV (16:02)
--- NOTE | 2018-10-20 16:43 | NURSING ---
DR PACHECO CALLED TO CHECK ON STATUS OF PT
--- NOTE | 2018-10-20 17:45 | NURSING ---
DR PACHECO HAD CALLED TO CHECK ON STATUS OF PT. PT TOLERATING LIGHT DIET, VOIDING AND PASSING FLATUS BUT HR >140 W/AMBULATION. NEW ORDERS RECEIVED, BOLUS GIVEN, DR PACHECO CALLED W/UPDATE, HR NOW 125 W/AMBULATION. PT AGREEABLE TO STAYING ANOTHER NIGHT, WILL RECEIVE 1 U PRBC AND LABS RECHECKED IN AM
[2018-10-21] VITALS (7 sets, daily range): BP systolic 131–133; BP diastolic 84–87; PULSE 80–111; RESP 16; TEMP 36.6–36.9; O2SAT 93–96
[2018-10-21] MEDS: Metoclopramide 10 MG/2 ML Vial IV ×3 (00:16→11:04)
[2018-10-21] MEDS: Ketorolac 10 MG Tablet PO ×3 (00:17→11:03)
[2018-10-21] MEDS: Acetaminophen 500 MG Tablet 1000 MG PO ×3 (00:17→12:50)
[2018-10-21 05:24] LABS: Hematocrit 26.3 % (37-47); Hemoglobin 8.5 g/dL (12.0-15.0); Mean Corp Hgb Conc 32.3 g/dL (32-36); Mean Corpuscular Hgb 30.2 pg (27.0-32.0); Mean Corpuscular Volume 93.6 fL (81-99); Mean Platelet Vol. 10.3 fl (6.2-12.0); Platelet Count 168 K/mm3 (150-450); RBC Distribution Width CV 14.3 % (11.6-14.6); RBC Distribution Width SD 48.7 fl (35.1-43.9); Red Blood Count 2.81 M/mm3 (4.2-5.4); White Blood Count 9.4 K/mm3 (4.4-11.0)
[2018-10-21] MEDS: Docusate Sodium 100 MG Capsule PO (07:57)
[2018-10-21] MEDS: Ensure Clear 120 ML Liquid PO (07:57)
[2018-10-21] MEDS: Lactated Ringers 1,000 ML 100 ML IV (07:58)
[2018-10-21] MEDS: 0.9% NaCl Peripheral Flush Adult/Peds IV (11:07)
--- NOTE | 2018-10-21 11:34 | PCM.PN.OB ---
Subjective: significant improvement positive flatus with some loos stools. pain controlled no CP SOB tolerating po - Physical Exam General: Alert, Oriented x3 Lungs: Normal air movement Cardiovascular: Regular rate Abdomen: Soft, Non Tender Vital Signs Temp Pulse Resp BP Pulse Ox 97.9 F 111 H 16 133/87 H 93 10/21/18 05:37 10/21/18 09:00 10/21/18 05:37 10/21/18 05:37 10/21/18 07:30 Oxygen Flow Rate (L/min) 2 Oxygen Delivery Method Room Air Weight: 196 lb 6.91 oz Body Mass Index (BMI) 34.7 Orthostatic Vital Signs Start: 10/20/18 16:08 Freq: q24h Status: Active Protocol: Activity Type Activity Date Activity User E-Sign Co-Sign Detail Recorded Client Recorded Date Recorded By Document 10/20/18 16:08 [id number] 10/20/18 16:17 10/20/18 16:08 Orthostatic Vitals Standing -Blood Pressure (90/60-120/80) 111/75 -Extremity Use Left Arm -Pulse Rate (60-100) 119 H Sitting -Blood Pressure (90/60-120/80) 121/71 H -Extremity Use Left Arm -Pulse Rate (60-100) 122 H Lying -Blood Pressure (90/60-120/80) 105/67 -Extremity Use Left Arm -Pulse Rate (60-100) 121 H Intake and Output for Last 24 Hours 10/19/18 10/20/18 10/21/18 23:59 23:59 23:59 Intake Total 8427.42 / 8427.42 4305.50 / 4305.50 996.67 / 996.67 Output Total 3150 / 3150 1750 / 1750 500 / 500 Balance 5277.42 / 5277.42 2555.50 / 2555.50 496.67 / 496.67 Laboratory Tests Past 24 Hrs 10/20/18 10/21/18 17:56 05:06 WBC 9.4 RBC 2.81 L Hgb 8.5 L Hct 26.3 L MCV 93.6 MCH 30.2 MCHC 32.3 RDW Std Deviation 48.7 H RDW Coeff of Kia 14.3 Plt Count 168 MPV 10.3 Crossmatch See Detail Medical Necessity - Tobacco Use Smoking Status: Never smoker Tobacco Use: Non-smoker Assessment/Plan All Active Problems (Last Updated 10/19/18 @ 03:44 by Ofelia Ragland MD) Atelectasis (Acute) Postoperative ileus (Acute) Acute blood loss as cause of postoperative anemia (Acute) Postoperative hemorrhage (Acute) Abnormal uterine bleeding (Acute) Uterine fibroid (Acute) Atypical squamous cells of undetermined significance (ASC-US) on cervical Pap smear (Acute) 47 yo s/p LAVH with extensive ZAKIA with acute blood loss anemia secondary to postoperative bleeding POD 3 s/p diagnostic laparoscopy pod 2 evacuation of clots blood loss anemia - s/p 3 U PRBCs. stable. additional unit transfused last night due to symptomatic tachycardia with ambulation postop ileus- resolved, diet regular, was on reglan and mylicon pain control- toradol and encouarge oral pain control dc home
== END 2018-10-21 13:05 | disposition home or self-care (01) | DRG 908 ==
LOC: SDC 14:55 → MS3 10-22 08:45
PROVIDERS: Admitting Provider Obstetrics & Gynecology; Family Provider Internal Medicine; PCP Internal Medicine; Referring Provider Obstetrics & Gynecology; Visit Provider Obstetrics & Gynecology
PROC: 0UT9FZZ Resection of Uterus, Via Natural or Artificial Opening With Percutaneous Endoscopic Assistance (ICD-10-PCS; principal; 2018-10-18 07:05)
PROC: 0W3R8ZZ Control Bleeding in Genitourinary Tract, Via Natural or Artificial Opening Endoscopic (ICD-10-PCS; CPT 49320; principal; 2018-10-19 04:15)
DX: N99.820 Postprocedural hemorrhage of a genitourinary system organ or structure following a genitourinary system procedure (principal); D62 Acute posthemorrhagic anemia; K91.89 Other postprocedural complications and disorders of digestive system; K56.7 Ileus, unspecified; J98.11 Atelectasis; N93.9 Abnormal uterine and vaginal bleeding, unspecified; K66.0 Peritoneal adhesions (postprocedural) (postinfection); D25.9 Leiomyoma of uterus, unspecified; R87.610 Atypical squamous cells of undetermined significance on cytologic smear of cervix (ASC-US); R00.0 Tachycardia, unspecified; Z98.891 History of uterine scar from previous surgery
CPT/HCPCS: 36415; 71275; 74177; 81025; 82962; 85014; 85018; 85025; 85027; 85384; 85610; 85730; 86850; 86900; 86901; 86920; 86922; 88307; 94640; 94762; J7030; J7040; J7120; P9016; Q9967; A4216; J2405

== ENCOUNTER 2018-10-23 13:39 | Emergency (ER) | payer OTHER, SELFPAY ==
[2018-10-23 13:35] VITALS: BMI 34.7
[2018-10-23 13:40] VITALS: BP 134/86; PULSE 81; RESP 16; TEMP 36.7; O2SAT 98; BMI 39.8
--- NOTE | 2018-10-23 13:56 | CT_ITS ---
STUDY: CT ABDOMEN AND PELVIS WITH CONTRAST REASON FOR EXAM: Female, 47 years old. Abdominal pain. Recent hysterectomy. RADIATION DOSAGE (If Supplied By Facility): CTDIvol = ( 16.31 ) mGy, DLP = ( 1182.05 ) mGycm TECHNIQUE: Transaxial images were obtained from the dome of the diaphragm to the symphysis pubis with oral contrast. 100 IV/Oral Isovue 300 was administered. Sagittal and coronal images were reconstructed. Individualized dose optimization techniques were used for this CT. COMPARISON: Comparison is made with prior study dated October 19, 2018. FINDINGS: Small bilateral effusions right greater than left with bibasilar atelectasis is worse in the right lower lobe. The visualized portions of the heart are within normal limits. Normal liver. The previously seen perihepatic and perisplenic fluid is not seen at this time. The fluid in the right paracolic gutter as well as in the pelvis has much improved as well. Fluid is not seen at this time Increased density in the gallbladder suggestive of sludge. Normal spleen. Normal pancreas. Normal bilateral adrenal glands. Normal right kidney. Normal left kidney. Increased markings are seen in the right paracolic gutter. Normal visualized stomach. There is thickening of the second portion of duodenum. Normal colon. The appendix is visualized and appears normal. Normal abdominal aorta. Normal inferior vena cava. There is borderline retroperitoneal lymphadenopathy with enlarged nodes no greater than 10mm in the short axis diameter. Normal urinary bladder. Diffuse increase in markings in the subcutaneous surrounding the right kidney suggestive of inflammatory changes and/or postoperative changes. Of the abdominal wall. Normal osseous structures. CT/Abdomen/Pelvis WITH Contrast IMPRESSION: Interval resolution of the ascites. Mild residual postoperative changes are seen in the pelvis. Sludge is seen within the gallbladder lumen. Electronically Signed: Flynn Sharp, at 15:47 EDT , Service support ,
--- NOTE | 2018-10-23 14:13 | ED.DCSUM_ITS ---
History of Present Illness Chief Complaint: Wound Informant: Patient Onset: Yesterday Narrative: 5 days postop elective hysterectomy by Dr. Ragland. Reports had vaginal bleeding and uterine fibroids. Postop complications of bleeding requiring laparoscopic evaluation the following day with cauterization. Status post 3 units of packed red blood cells. Yesterday noted malodorous drainage from umbilical region. Increasing bruising left side and flank. Postop abdominal pain controlled with oxycodone's last dose 10:30 AM. That was a last meal. Normal bowel movements. No fever, chills, sweats. Sent in after calling the nurse who spoke with Dr. Ragland to rule out infection. Denies any vaginal bleeding. Reports procedure is laparoscopic with transvaginal approach. Past Medical History - Allergies and Home Meds Allergies/Adverse Reactions: Allergies No Known Allergies Allergy (Verified 10/23/18 13:43) Primary Care Physician: Deanna Sherman DO [Primary Care Provider] - Smoking Status: Never smoker Review of Systems General: Denies: Chills, Fever, Sweats Eyes: Denies: Visual changes - bilaterally, Diplopia ENT: Denies: Rhinorrhea, Sore throat Cardiovascular: Denies: Chest pain, Palpitations Respiratory: Denies: Dyspnea, Cough, Dyspnea on exertion Gastrointestinal: Reports: Abdominal pain. Denies: Nausea, Vomiting, Diarrhea, Melena, Hematochezia Genitourinary: Denies: Dysuria, Hematuria, Frequency Musculoskeletal: Denies: Back pain, Extremity Pain Skin: Reports: Wounds. Denies: Rash Neurological: Denies: Headache, Weakness, Numbness Physical Exam Vital Signs/Narrative: Vital Signs Temp Pulse Resp BP Pulse Ox 10/23/18 13:40 98.1 F 81 16 134/86 H 98 Inital Vital Signs reviewed: Yes General: Well nourished, Well developed, No Acute Distress Head: Normocephalic, Atraumatic Eyes: Perrl, EOMI ENT: Moist mucous membranes, No rhinorrhea Neck: Supple, Nontender Cardiovascular: Regular rate, Regular rhythm, No murmurs Respiratory: No distress, CTA bilaterally, Chest nontender Abdomen: Soft, Nondistended, Normal bowel sounds, - - Laparoscopic incision with Steri-Strips, dry blood, no active drainage. There is ecchymosis lower abdomen, left side abdomen upper towards the flank region. Mild tenderness generalized with no guarding or rebound. Back: Nontender, Normal Inspection Extremities: Nontender, No edema Skin: Normal color, No rash Neurological: Alert, Oriented x3, Cranial nerves II-XII grossly intact, Normal Strength, Normal Sensation Psychological: Normal affect, Normal Mood Diagnostic/Tx/Re-eval - Medical Decision Making Clinical Impression(s) from Imaging Studies Abdomen/Pelvis CT 10/23/18 13:56 IMPRESSION: Interval resolution of the ascites. Mild residual postoperative changes are seen in the pelvis. Sludge is seen within the gallbladder lumen. Electronically Signed: Flynn Simmonskerrypraveen, at 15:47 EDT , Service support , Abnormal Lab Results 10/23/18 10/23/18 10/23/18 14:15 14:15 14:15 WBC 11.8 H RBC 3.19 L Hgb 9.7 L Hct 30.3 L MCV 95.0 MCH 30.4 MCHC 32.0 RDW Std Deviation 46.6 H RDW Coeff of Kia 13.7 Plt Count 286 MPV 10.1 Immature Gran % (Auto) 0.600 Neut % (Auto) 65.7 Lymph % (Auto) 22.6 [place] % (Auto) 7.6 Eos % (Auto) 3.2 Baso % (Auto) 0.3 Absolute Neuts (auto) 7.8 H Absolute Lymphs (auto) 2.67 Nucleated RBC % 0 PT 14.5 INR 1.2 APTT 33.9 Sodium 141 Potassium 3.7 Chloride 108 H Carbon Dioxide 29.0 Anion Gap 4 L BUN 10 Creatinine 0.66 Estim Creat Clear Calc 87.17 Est GFR (MDRD) Af Amer 124 Est GFR (MDRD) Non-Af 102 BUN/Creatinine Ratio 15.2 Glucose 92 Calcium 7.9 L Total Bilirubin 0.60 AST 17 ALT 24 Alkaline Phosphatase 72 Total Protein 5.8 L Albumin 2.6 L Globulin 3.2 Albumin/Globulin Ratio 0.8 L Lipase 59 L Patient vitals stable, nontoxic. Postop day 5 with ecchymosis. There is no erythema or active drainage however she complains of malodorous drainage from umbilicus. I did check labs white count 11.8, hemoglobin improved to 9.7 from 8.5, [address] obtained, reported postoperative changes with improving ascites. Suspect improving ascites was from blood in her abdomen from postop complications. Patient declined any pain medicines. She felt reassured. I did discuss with Dr. Ragland results.. Discussed with patient's compl aints of malodorous drainage, she would like her on Keflex. Patient will follow-up next week with the office, signs and symptoms discussed return. All questions were answered. ED Disposition - Plan for ED Patient: Disposition: Home or Assisted Living Diagnosis: Postop check, Anemia due to blood loss Instructions: POST OP WOUND CHECK, General Prescriptions: Cephalexin [Keflex] 500 mg PO Q6 #40 capsule Referrals: Deanna Sherman DO [Primary Care Provider] - Ofelia Ragland MD [STAFF PHYSICIAN] - 5-7 Days
[2018-10-23] MEDS: 0.9% Normal Saline 1,000 ML 125 ML IV (14:21)
[2018-10-23 14:29] LABS: Absolute Lymphocyte Count 2.67 X10^3/uL (0.83-4.51); Absolute Neutrophil Count 7.8 X10^3/uL (2.0-7.7); Basophil# 0.03 X10^3/uL; Basophil% 0.3 % (0-1); Eosinophil# 0.38 X10^3/uL; Eosinophils% 3.2 % (0-5); Hematocrit 30.3 % (37-47); Hemoglobin 9.7 g/dL (12.0-15.0); Lymphocyte # 2.67 X10^3/ul (4.0); Lymphocyte % 22.6 % (19-41); Mean Corpuscular Hgb 30.4 pg (27.0-32.0); Mean Platelet Vol. 10.1 fl (6.2-12.0); Monocyte% 7.6 % (0-10); NRBC Flagged by Analyzer 0 % (0-5); Neutrophil # 7.77 X10^3/uL (2.7-7.7); Neutrophil % 65.7 % (47-70); Platelet Count 286 K/mm3 (150-450); RBC Distribution Width CV 13.7 % (11.6-14.6); RBC Distribution Width SD 46.6 fl (35.1-43.9); Red Blood Count 3.19 M/mm3 (4.2-5.4); White Blood Count 11.8 K/mm3 (4.4-11.0)
[2018-10-23 14:37] LABS: International Normalized Ratio 1.2; Prothrombin Time (Protime)PT. 14.5 SECONDS (11.7-14.9)
[2018-10-23 14:38] LABS: Partial Thromboplast Time 33.9 Seconds (24.1-36.2)
[2018-10-23 14:51] LABS: ALB/GLOB Ratio 0.8 RATIO (0.9-2.4); AST(SGOT) 17 U/L (15-37); Alanine Aminotransfer ALT/SGPT 24 U/L (13-56); Albumin, Serum 2.6 g/dL (3.2-5.0); Alkaline Phosphatase 72 U/L (45-117); Anion Gap 4 (5-15); BUN 10 mg/dL (7-18); BUN/Creat Ratio 15.2 RATIO (10-20); Calcium,Total 7.9 mg/dL (8.5-10.1); Chloride 108 mmol/L (98-107); Creatinine, Serum 0.66 mg/dL (0.55-1.02); EST Glomerular Filtration Rate 102 mL/min (>60); Est Glom Filt Rate - Afr Amer 124 mL/min (>60); Estimated Creatinine Clearance 87.17 ml/min; Globulin 3.2 g/dL (2.2-4.2); Glucose 92 mg/dL (74-106); Lipase 59 U/L (73-393); Potassium 3.7 mmol/L (3.5-5.1); Protein, Total 5.8 g/dL (6.4-8.2); Sodium Level 141 mmol/L (136-145)
[2018-10-23 15:52] VITALS: BP 123/80; PULSE 76; RESP 18; TEMP 36.9; O2SAT 100
[2018-10-23] MEDS: Cephalexin 250 MG Capsule 500 MG PO (16:00)
[2018-10-23 16:38] VITALS: BP 108/77; PULSE 61; RESP 15; O2SAT 98
== END 2018-10-23 16:42 | disposition home or self-care (01) ==
PROVIDERS: Emergency Provider Emergency Medicine; Family Provider Internal Medicine; PCP Internal Medicine
DX: Z48.01 Encounter for change or removal of surgical wound dressing (principal); D62 Acute posthemorrhagic anemia
CPT/HCPCS: 74177; 80053; 83690; 85025; 85610; 85730; 87070; 87205; 96360; 96361; 99284; J7030; Q9967

== ENCOUNTER → 2018-11-20 17:08 | Outpatient (CLI) | payer OTHER, SELFPAY ==
[2018-11-20 15:46] VITALS: BMI 39.8
== END ==
PROVIDERS: Family Provider Internal Medicine; PCP Internal Medicine; Referring Provider Nurse Practitioner Women's Health; Visit Provider Nurse Practitioner Women's Health
DX: N39.0 Urinary tract infection, site not specified (principal)
CPT/HCPCS: 87086; 87088

== ENCOUNTER → 2018-11-21 10:16 | Outpatient (CLI) | payer OTHER, SELFPAY ==
[2018-11-20 15:46] VITALS: BMI 39.8
[2018-11-21 10:39] LABS: Absolute Lymphocyte Count 3.41 X10^3/uL (0.83-4.51); Absolute Neutrophil Count 4.4 X10^3/uL (2.0-7.7); Basophil# 0.07 X10^3/uL; Basophil% 0.8 % (0-1); Eosinophil# 0.26 X10^3/uL; Eosinophils% 2.9 % (0-5); Hematocrit 38.8 % (37-47); Hemoglobin 12.7 g/dL (12.0-15.0); Lymphocyte # 3.41 X10^3/ul (4.0); Lymphocyte % 38.5 % (19-41); Mean Corp Hgb Conc 32.7 g/dL (32-36); Mean Corpuscular Hgb 31.1 pg (27.0-32.0); Mean Corpuscular Volume 95.1 fL (81-99); Mean Platelet Vol. 9.2 fl (6.2-12.0); Monocyte% 7.9 % (0-10); NRBC Flagged by Analyzer 0 % (0-5); Neutrophil # 4.37 X10^3/uL (2.7-7.7); Neutrophil % 49.4 % (47-70); Platelet Count 261 K/mm3 (150-450); RBC Distribution Width CV 12.8 % (11.6-14.6); RBC Distribution Width SD 44.4 fl (35.1-43.9); Red Blood Count 4.08 M/mm3 (4.2-5.4); White Blood Count 8.9 K/mm3 (4.4-11.0)
== END ==
PROVIDERS: Family Provider Internal Medicine; PCP Internal Medicine; Referring Provider Nurse Practitioner Women's Health; Visit Provider Nurse Practitioner Women's Health
DX: D62 Acute posthemorrhagic anemia (principal)
CPT/HCPCS: 36415; 85025

== ENCOUNTER → 2019-01-22 08:27 | Outpatient (CLI) | payer OTHER, SELFPAY ==
[2018-09-12 14:35] VITALS: BMI 32.9
[2018-12-10 16:55] VITALS: BMI 33.8
--- NOTE | 2019-01-22 08:37 | BI_ITS ---
MAMMOGRAPHY - BILATERAL SCREENING REASON FOR EXAM: Female, 48 years old. Routine annual screening examination. PERTINENT HISTORY: Grandmother with breast cancer. TECHNIQUE: Digital bilateral breast sherrill (3D mammographic acquisition) in the CC and MLO projections. 2-D mediolateral oblique (MLO) and craniocaudad (CC) views of both breasts were obtained. CAD: Full Field Digital Mammography with Computer Added Detection was performed. COMPARISON: Comparison is made with prior outside examination dated January 17, 2018. FINDINGS: Breast Composition: The breasts are heterogeneously dense, which may obscure small masses. There are no dominant masses or suspicious calcifications. Stable benign-appearing bilateral axillary lymph nodes. Stable bilateral scattered microcalcifications. No focal cluster is seen. No other significant abnormalities are identified. There has been no significant change since the prior study. BI/SCREEN MAMM (CAD) W/SHERRILL BILAT IMPRESSION: Stable bilateral screening mammogram. Yearly follow-up mammogram recommended. (A) ASSESSMENT CATEGORY: BIRADS Category 2: Benign. A letter regarding these results will be sent to the patient by the facility within 30 days. Approximately 10% of breast cancers are not detected by mammography. A normal mammogram should not delay biopsy of a clinically suspicious abnormality. [id number] Electronically Signed: Flynn Sharp, at 10:11 EST , Service support ,
== END ==
PROVIDERS: Family Provider Internal Medicine; PCP Internal Medicine; Referring Provider Nurse Practitioner Women's Health; Visit Provider Nurse Practitioner Women's Health
DX: Z12.31 Encounter for screening mammogram for malignant neoplasm of breast (principal)
CPT/HCPCS: 77063; 77067

== ENCOUNTER → 2020-02-11 07:32 | Outpatient (CLI) | payer OTHER, SELFPAY ==
[2019-07-23 09:44] VITALS: BMI 33.8
--- NOTE | 2020-02-11 07:34 | BI_ITS ---
MAMMOGRAPHY - BILATERAL SCREENING REASON FOR EXAM: Female, 49 years old. Routine annual screening examination. PERTINENT HISTORY: Aunt with breast cancer. TECHNIQUE: Digital bilateral breast sherrill (3D mammographic acquisition) in the CC and MLO projections. 2-D mediolateral oblique (MLO) and craniocaudad (CC) views of both breasts were obtained. CAD: Full Field Digital Mammography with Computer Added Detection was performed. COMPARISON: Comparison is made with prior study dated 01/22/2019. FINDINGS: Breast Composition: The breasts are heterogeneously dense, which may obscure small masses. There are no dominant masses or suspicious calcifications. Stable benign-appearing bilateral axillary lymph nodes as well as scattered bilateral microcalcifications. No focal cluster is seen. No other significant abnormalities are identified. There has been no significant change since the prior study. BI/SCREEN MAMM (CAD) W/SHERRILL BILAT IMPRESSION: Stable bilateral screening mammogram. Yearly follow-up mammogram recommended. (A) ASSESSMENT CATEGORY: BIRADS Category 2: Benign. A letter regarding these results will be sent to the patient by the facility within 30 days. Approximately 10% of breast cancers are not detected by mammography. A normal mammogram should not delay biopsy of a clinically suspicious abnormality. [id number] Electronically Signed: Flynn Sharp, at 8:30 EST , Service support ,
== END ==
PROVIDERS: PCP Internal Medicine; Referring Provider Nurse Practitioner Women's Health; Visit Provider Nurse Practitioner Women's Health
DX: Z12.31 Encounter for screening mammogram for malignant neoplasm of breast (principal)
CPT/HCPCS: 77063; 77067

== ENCOUNTER → 2022-02-18 | Outpatient (CLI) | payer OTHER, SELFPAY ==
--- NOTE | 2022-02-18 07:46 | BI_ITS ---
MAMMOGRAPHY - BILATERAL SCREENING REASON FOR EXAM: Female, 51 years old. Routine annual screening examination. PERTINENT HISTORY: Grandmother with breast cancer. TECHNIQUE: Digital bilateral breast sherrill (3D mammographic acquisition) in the CC and MLO projections. 2-D mediolateral oblique (MLO) and craniocaudad (CC) views of both breasts were obtained. CAD: Full Field Digital Mammography with Computer Added Detection was performed. COMPARISON: Comparison is made with prior study dated 02/11/2021 and 02/11/2020. FINDINGS: Breast Composition: The breasts are heterogeneously dense, which may obscure small masses. There are no dominant masses or suspicious calcifications. Stable diffuse scattered microcalcifications. No focal cluster is seen. Stable small benign-appearing bilateral axillary lymph nodes. No other significant abnormalities are identified. There has been no significant change since the prior study. BI/SCRN MAMM (CAD)W/SHERRILL BILAT IMPRESSION: Stable bilateral screening mammogram. Yearly follow-up mammogram recommended. (A) ASSESSMENT CATEGORY: BIRADS Category 2: Benign. A letter regarding these results will be sent to the patient by the facility within 30 days. Approximately 10% of breast cancers are not detected by mammography. A normal mammogram should not delay biopsy of a clinically suspicious abnormality. [id number] Electronically Signed: Flynn Sharp MD at 9:10 EST ,
== END | disposition home or self-care (01) ==
LOC: OPBI 07:44
PROVIDERS: PCP Internal Medicine; Referring Provider Nurse Practitioner Women's Health; Visit Provider Nurse Practitioner Women's Health
DX: Z12.31 Encounter for screening mammogram for malignant neoplasm of breast (principal); Z80.3 Family history of malignant neoplasm of breast
CPT/HCPCS: 77063; 77067

== ENCOUNTER → 2023-03-01 | Outpatient (CLI) | payer OTHER, SELFPAY ==
--- NOTE | 2023-03-01 07:47 | BI_ITS ---
MAMMOGRAPHY - BILATERAL SCREENING REASON FOR EXAM: Female, 52 years old. Routine annual screening examination. PERTINENT HISTORY: Grandmother with breast cancer. TECHNIQUE: Digital bilateral breast sherrill (3D mammographic acquisition) in the CC and MLO projections. 2-D mediolateral oblique (MLO) and craniocaudad (CC) views of both breasts were obtained. CAD: Full Field Digital Mammography with Computer Added Detection was performed. COMPARISON: Comparison is made with prior study dated August 18, 2022 and February 11, 2021. FINDINGS: Breast Composition: The breasts are heterogeneously dense, which may obscure small masses. There are no dominant masses or suspicious calcifications. Scattered bilateral calcifications. Small bilateral benign appearing lymph nodes. No other significant abnormalities are identified. There has been no significant change since the prior study. BI/SCRN MAMM (CAD)W/SHERRILL BILAT IMPRESSION: Stable bilateral screening mammogram. Yearly follow-up mammogram recommended. (A) ASSESSMENT CATEGORY: BIRADS Category 2: Benign. A letter regarding these results will be sent to the patient by the facility within 30 days. Approximately 10% of breast cancers are not detected by mammography. A normal mammogram should not delay biopsy of a clinically suspicious abnormality. [id number] Electronically Signed: Flynn Sharp MD at 13:44 EST ,
== END | disposition home or self-care (01) ==
LOC: OPBI 07:47
PROVIDERS: PCP Internal Medicine; Referring Provider Registered Nurse; Visit Provider Registered Nurse
DX: Z12.31 Encounter for screening mammogram for malignant neoplasm of breast (principal)
CPT/HCPCS: 77063; 77067

== ENCOUNTER → 2024-03-08 | Outpatient (CLI) | payer OTHER, SELFPAY ==
--- NOTE | 2024-03-08 08:22 | BI_ITS ---
PROCEDURE: SCRN MAMM (CAD)W/SHERRILL BILAT REASON FOR EXAM: F, Age 53 y/o, annual mammogram. Grandmother with breast cancer. TECHNIQUE: Bilateral screening digital breast tomosynthesis with 2D and 3D images. Computer aided detection. COMPARISON: Prior exam(s) dating back to comparison is made with prior examination dated March 01, 2023.. FINDINGS: The breasts are heterogeneously dense which may obscure small masses. Stable small benign-appearing bilateral axillary lymph nodes. Stable diffuse scattered microcalcifications. No focal cluster is seen. No suspicious masses, areas of developing architectural distortion, or suspicious calcifications. Stable examination. BI/SCRN MAMM (CAD)W/SHERRILL BILAT IMPRESSION: BI-RADS 2: BENIGN. RECOMMEND ANNUAL MAMMOGRAPHIC SCREENING. Follow-up code: Routine Follow-up The patient will be notified of the results by letter. Reading Location: [place] [id number]
== END | disposition home or self-care (01) ==
LOC: OPBI 08:22
PROVIDERS: PCP Internal Medicine; Referring Provider Nurse Practitioner Women's Health; Visit Provider Nurse Practitioner Women's Health
DX: Z12.31 Encounter for screening mammogram for malignant neoplasm of breast (principal)
CPT/HCPCS: 77063; 77067